=== PATIENT | male | born 1945 | race Caucasian/White ===

== ENCOUNTER 2016-08-03 11:10 | Emergency (ER) | payer MEDICARE, MEDICAID ==
[~2016-08-03] VITALS: Ht 177.8 cm; Wt 88.6 kg
[2016-08-03 11:21] VITALS: BP 123/77; PULSE 93; RESP 16; O2SAT 100
--- NOTE | 2016-08-03 11:42 | ED.REPORT ---
HPI-General Illness Date of Service Aug 03, 2016 ED Provider: Ramon Crowe DO Pt is a 71 y.o. male with a colostomy bag who presents to the ED c/o severe sudden onset abdominal pain near sight of colostomy bag onset last night. Pt states that the pain has since resolved but he now notices swelling surrounding site. He also states that he experienced 2 hours of only clear liquid excreting into the bag, he described it as "weeping tears". Pt denies fever, nausea, and vomiting. He notes that he was able to change his bag himself but tore a hole in it. Pt states that colostomy is 'temporary'. Nursing Notes Stated Complaint: POSS OBSTRUCTION COLOSTOMY BAG Chief Complaint: General Complaint Nursing Notes Reviewed: Yes Allergies: Coded Allergies: codeine (Verified Allergy, Intermediate, Rash,Itching,, 01/17/16) General Time Seen by MD: 11:39 Chief Complaint Abdominal pain Hx Obtained From: Patient Arrived By: Walk-in Sudden in Onset?: Yes Onset Occurred: Yesterday Symptom Duration: 1 - 4 hours Location: : Abdomen Quality: Painful Severity: Current: No pain currently Severity: Maximum: Severe Past Medical History Past Medical History recent weight loss (40 pounds in 6 months) [place] Chronic kidney disease with most recent creatinine of 3.2 on 11/29/2015. Etiology of chronic renal disease is likely secondary to: NSAIDs, postobstructive uropathy, hepatorenal. 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 Physical Exam Vital Signs Initial VS: Reviewed Head / Eyes: Atraumatic, Normocephalic Extremities: Vascular intact, Neuro intact Skin: Warm, Dry, No cyanosis Neurologic: Alert, Oriented, Nonfocal Psychiatric: Mood/affect normal, Behavior normal, Normal thought content General/Constitutional: Awake, Alert, No acute distress, Well appearing, Well developed, Well hydrated, Well nourished, Not toxic appearing Respiratory / Chest: Atraumatic, Breath sounds NL, Breath sounds = bilat, No respiratory distress, No rales, No rhonchi, No wheezing Cardiovascular: Heart rate NL, Regular rhythm, Heart sounds NL, No gallop, No murmurs, No rubs, Peripheral circulation NL Abdomen: Soft, Non-tender Beefy red stoma Ostomy bag full of green loose stool Interpretation & Diagnostics X-Ray Abdominal Interpretation IMPRESSION: No radiographic evidence for bowel obstruction, status post interval left lower quadrant ostomy. Dictated by: Raul Tipton M.D. on 08/03/2016 at 13:31 Approved by: Raul Tipton M.D. on 08/03/2016 at 13:33 Re-Eval/Medical Decision Med Decision/Clinical Course 71-year-old male presenting with an episode of abdominal pain with no ostomy output for 2 hours. It did restart prior to arrival at the ER. He notes a hole in his ostomy bag. X-ray is reassuring that there is no obstruction and he continues to have output here. His ostomy bag was changed. Was given Toradol and oxycodone for gas pain. I offered a CT scan of his abdomen but he stated that his pain is not that serious. He will return if his pain worsens and he plans to follow up with his doctor as scheduled Source of Hx: Old records Time of Eval: 13:48 Re-Evaluation/Progress Note: Pt rechecked. Pt states that he is still experiencing pain. Discussed imaging results and plan for discharge. Pt understands and agrees with plan. Counseled Regarding: Diagnosis, Lab results, Need for follow-up, When/why to return to ED Discharge & Departure Primary Impression: Complication of ostomy Additional Impression: Acute abdominal pain Disposition: Home Discharge Condition All VS Reviewed: Yes Condition: Stable Patient Instructions: Colostomy Care (ED) Additional Instructions: Thank you for entrusting us with your care today. Your examination included a physical exam, interview, and abdominal x-ray. Your imaging was reassuring and it does not appear that you have an obstruction. Your imaging does show gas build up and this may be a cause of your pain. I recommend you follow-up with your primary care physician. Please seek care if you experience worsening pain, fever, redness, swelling, or any new or worsening symptoms. Referrals: OTHER,PHYSICIAN (PCP) [facility] Ziyad Attestation Portions of this note were transcribed by Drew Fernandez. I, Dr. Crowe personally performed the history, physical exam and medical decision-making; I reviewed and confirmed the accuracy of the information in the transcribed note. Signed by: Ziyad Lynch, 08/03/2016 and [id number]. copies to: [facility] Ramon Crowe DO Aug 03, 2016 11:42 DREW FERNANDEZ Aug 03, 2016 12:00 Signed by: Ziyad Lynch, 08/03/2016 and 1356. copies to: [facility] Ramon Crowe DO Aug 03, 2016 11:42 DREW FERNANDEZ Aug 03, 2016 12:00
--- NOTE | 2016-08-03 13:35 | DRSVH ---
PROCEDURE: X-RAY ACUTE ABDOMINAL SERIES ([id number]) INDICATIONS: 71 year-old male with abdominal pain and decreased ostomy output. TECHNIQUE: One view chest and two views of the abdomen were acquired. COMPARISON: [facility], CT, CT ABD PELVIS WO CON, 01/17/2016, 14:34. FINDINGS: Surgical changes and devices: Left chest wall single lead pacemaker is again noted. Right upper quadr ant surgical clips are again noted, as well as right lower quadrant bowel anastomotic yury. Left l ower quadrant ostomy is now present. Presumed Cadena catheter is also present. Chest: Lungs are clear. Heart size is normal. No pleural effusions. No pneumoperitoneum. Abdomen: Bowel gas pattern is normal. No suspicious calcifications. Visualized solid organ contour s appear normal. Bones: No suspicious bony lesions. IMPRESSION: No radiographic evidence for bowel obstruction, status post interval left lower quadrant ostomy. Dictated by: Raul Tipton M.D. on 08/03/2016 at 13:31 Approved by: Raul Tipton M.D. on 08/03/2016 at 13:33
== END 2016-08-03 14:20 | disposition home or self-care (01) ==
LOC: SED 11:10
DX: K94.09 Other complications of colostomy (principal); R10.9 Unspecified abdominal pain; Y83.3 Surgical operation with formation of external stoma as the cause of abnormal reaction of the patient, or of later complication, without mention of misadventure at the time of the procedure; Y93.89 Activity, other specified; Y99.8 Other external cause status; Y92.019 Unspecified place in single-family (private) house as the place of occurrence of the external cause; I12.9 Hypertensive chronic kidney disease with stage 1 through stage 4 chronic kidney disease, or unspecified chronic kidney disease; N18.9 Chronic kidney disease, unspecified; J44.9 Chronic obstructive pulmonary disease, unspecified; I25.2 Old myocardial infarction; Z98.84 Bariatric surgery status; Z88.5 Allergy status to narcotic agent

== ENCOUNTER 2016-09-12 12:38 | Emergency (ER) | payer MEDICARE, MEDICAID ==
[2016-09-12 12:46] VITALS: BP 135/81; PULSE 82; RESP 18; O2SAT 98
--- NOTE | 2016-09-12 13:00 | ED.REPORT ---
HPI-Abd Pain M 40 and Over Date of Service Sep 12, 2016 ED Provider: Robbie Tomlinson MD 71 year old male with history of colostomy due to chronic diarrhea presents to the ER complaining of a herniation at his colostomy site status post lifting a desk out of his truck two days ago. He states that his intestines were expelled from his colostomy site, dislodging his colostomy bag. At the time of the incident he immediately laid on his back and reduced his intestines manually. Patient denies fever, nausea, vomiting, and diarrhea. He is on chronic oxycodone. Nursing Notes Stated Complaint: ABD PAIN Chief Complaint: General Complaint Nursing Notes Reviewed: Yes Allergies: Coded Allergies: codeine (Verified Allergy, Intermediate, Rash,Itching,, 01/17/16) General Time Seen by MD: 12:59 Chief Complaint Abdominal pain, Other (Hernia at Colostomy Site) Hx Obtained From: Patient Arrived By: Walk-in Sudden in Onset?: Yes Onset Occurred: 2 days ago Symptom Duration: Since onset Location: : LLQ Quality: Painful Severity: Current: Mild Severity: Maximum: Moderate Past Medical History Past Medical History recent weight loss (40 pounds in 6 months) [place] Chronic kidney disease with most recent creatinine of 3.2 on 11/29/2015. Etiology of chronic renal disease is likely secondary to: NSAIDs, postobstructive uropathy, hepatorenal. 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 Physical Exam Initial Vital Signs Vital Signs (First) Date Time Temp Pulse Resp B/P Pulse Ox O2 Delivery O2 Flow Rate FiO2 09/12/16 12:46 36.2 82 18 135/81 98 09/12/16 13:19 Room Air Initial VS: Reviewed Head / Eyes: Atraumatic, Normocephalic Neck: Supple, Non-tender, Full range of motion Extremities: Vascular intact, Neuro intact, No swelling, No tenderness Skin: Warm, Dry, No cyanosis Neurologic: Alert, Oriented, Nonfocal General/Constitutional: Awake, Alert, Well developed, Well nourished Respiratory / Chest: Breath sounds NL, Breath sounds = bilat, No respiratory distress, No rales, No rhonchi, No wheezing Cardiovascular: Heart rate NL, Regular rhythm, Heart sounds NL, Peripheral circulation NL Abdomen: Soft, Non-tender, No guarding, No rebound, No distention Colostomy bag in LLQ with small liquid stool present. Colostomy site clean. Back: Inspection NL, Non-tender, No CVA tenderness Re-Eval/Medical Decision Source of Hx: Old records Time of Eval: 13:06 Re-Evaluation/Progress Note: Discussed physical examination findings and plan to discharge. Patient is amenable to the plan. Return precautions given. All other questions addressed. Counseled Regarding: Diagnosis, Need for follow-up, When/why to return to ED Discharge & Departure Primary Impression: Complication of ostomy Disposition: Home Vital Signs - All Vital Signs Date Time Temp Pulse Resp B/P Pulse Ox O2 Delivery O2 Flow Rate FiO2 09/12/16 13:19 36.2 82 18 135/81 98 Room Air 09/12/16 12:46 36.2 82 18 135/81 98 )( All Prior VS Reviewed: Yes Condition: Stable Patient Instructions: Colostomy Care (ED) Additional Instructions: Your colostomy site looks good. Return to the ER if you have any worsening or concerning symptoms. You have an appointment with Dr. Anderson Tuesday 09/19, 945 a.m. Referrals: OTHER,PHYSICIAN (PCP) Darell Anderson MD Attestation Portions of this note were transcribed by Giorgi Mills. I, Dr. Tomlinson, personally performed the history, physical exam and medical decision-making; I reviewed and confirmed the accuracy of the information in the transcribed note. Signed by: Ziyad Lizama, 09/12/2016 and 13:17 copies to: Darell Anderson MD, Kirk H MD Sep 12, 2016 12:59 GIORGI MILLS Sep 12, 2016 13:07
[2016-09-12 13:19] VITALS: BP 135/81; PULSE 82; RESP 18; O2SAT 98
== END 2016-09-12 13:26 | disposition home or self-care (01) ==
LOC: SED 12:38
DX: K94.09 Other complications of colostomy (principal); I13.10 Hypertensive heart and chronic kidney disease without heart failure, with stage 1 through stage 4 chronic kidney disease, or unspecified chronic kidney disease; N18.9 Chronic kidney disease, unspecified; I25.2 Old myocardial infarction; J44.9 Chronic obstructive pulmonary disease, unspecified; Z98.84 Bariatric surgery status; Z88.5 Allergy status to narcotic agent

== ENCOUNTER 2016-09-14 06:39 | Emergency (ER) | payer MEDICARE, MEDICAID ==
[~2016-09-14] VITALS: Ht 177.8 cm; Wt 90.9 kg
[2016-09-14 06:47] VITALS: BP 142/84; RESP 16; O2SAT 96
--- NOTE | 2016-09-14 06:54 | ED.REPORT ---
HPI-General Illness Date of Service Sep 14, 2016 ED Provider: Renato Garcia MD History of Present Illness: There is no sore throat template in this system, so a general illness template was used This is a 71 year old male with a history of CAD, [place], chronic kidney disease, COPD, and HTN presenting to the emergency department due to sore throat that began 10 hours ago. Reports difficulty swallowing due to pain and throat swelling. Pain radiates to the left ear and is associated with mild non- productive cough that has been intermittent in the last two weeks. Reports lack of PO intake due to pain with swallowing and has not taken his prescribed medications. Denies shortness of breath, fever, chills, nausea, vomiting, abdominal pain, diarrhea, or constipation at this time. Nursing Notes Stated Complaint: THROAT SORE AND CLOSING Chief Complaint: ENT & Mouth Nursing Notes Reviewed: Yes (Plex, [employer]Views not reconciled) Allergies: Coded Allergies: codeine (Verified Allergy, Intermediate, Rash,Itching,, 01/17/16) General Time Seen by MD: 06:41 Chief Complaint Other Hx Obtained From: Patient Arrived By: Walk-in Sudden in Onset?: Yes Onset Occurred: Just prior to arrival Symptom Duration: Since onset Severity: Current: Mild Pertinent Negative: Pt denies other symptoms Recent Healthcare: No recent doctor visit, No recent hospitalization Similar Sx Previous: No Past Medical History Past Medical History Notes: Seen in ED 09/12/16 for transient hernia through colostomy Last Admit 01/17/16 - left AMA within 3 hours (sacral wound) Past Medical History ho weight loss (40 pounds in 6 months) CAD w/ho of [place] Chronic kidney disease with most recent creatinine of 3.2 on 11/29/2015. Etiology of chronic renal disease is likely secondary to: NSAIDs, postobstructive uropathy, hepatorenal. 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 Physical Exam Vital Signs Vital Signs Date Time Temp Pulse Resp B/P Pulse Ox O2 Delivery O2 Flow Rate FiO2 09/14/16 06:47 36.1 85 16 142/84 96 Initial VS: Reviewed, Unavailable (none on chart, ordered) Head / Eyes: Atraumatic, Normocephalic, PERRL Neck: Supple, Non-tender, Full range of motion Cardiovascular: Regular rate & rhythm, Heart sounds normal, Intact distal pulses Abdomen / GI: Soft, Non-tender, No guarding, No rebound, No distention Extremities: Vascular intact, Neuro intact, No swelling, No tenderness Skin: Warm, Dry, No cyanosis Neurologic: Alert, Oriented, Nonfocal Psychiatric: Mood/affect normal, Behavior normal, Normal thought content General/Constitutional: Awake, Alert, No acute distress ENT: Airway patent, Mucous membranes moist, Pharynx NL, No pooling of secretions, No trismus, Tympanic membs NL Respiratory / Chest: No respiratory distress Wheezing / Retractions: Positive: Wheeze insp/exp diffuse States breathing is at baseline Interpretation & Diagnostics Lab Results Interpretation Lab Results Interpretation: Rapid strep negative Re-Eval/Medical Decision Med Decision/Clinical Course This is a 71-year-old male presents complaining of a sore throat to the point that he is having difficulty swallowing. The patient ambulate same, he appears in no visible distress and talks without any evidence of airway compromise. His voice is clear without muffling. He is handling his secretions without any visible difficulty. He has no trismus and can open his mouth wide open, and the pharynx appears relatively normal. I do not appreciate any rodney erythema or exudate, bedside strep is negative. There is no cervical or submandibular adenopathy or swelling. There is no clinical signs of blood weeks. He is a faint wheeze on respiratory exam, but states his breathing is at baseline. Overall the patient appears well. However the patient became angry when I offered him a viscous lidocaine for symptomatic relief. He demands a shot of penicillin stating that his work for him years ago in the past when he had similar symptoms. The patient seemed disproportionally upset, so I asked to see if he could swallow the lidocaine because he kept telling me he could not swallow. This is despite the fact that he did not demonstrate any of the typical external findings expected of someone with complete obstruction or inability to swallow. In fact the patient was actually able to swallow the lidocaine in front of me , with down without anything but mild discomfort. The patient became what seems to me is inappropriately upset as I was attempting review options, and demanded a shot I-indicated that if this that is what he really wants, even though it is not clearly indicated I would offer him this but that I wanted to make sure that we were appropriately addressing his condition as it is not clear that he has a simple strep throat and that other conditions (esophagititis, etc...) might be present. But the despite offering him the Pencilling injection he was demaning, the patient became so upset, he simply got up and ran out the door in the middle of our discussion. He would not wait for discharge instructions. Again he appears clinically well. He does not demonstrated clinical signs of airway compromise. he does not appear dehydrated. I could not get him to articulate the reason for his anger outburst (beyond his desire to get a penicillin injection) as it seemed disproportionate to the presentation. He did not appear intoxicated or in withdrawal. He seemed to have adequate decision capacity based on my initial interview, although I could not fully discuss risks/benefits as the patient simply rapidly eloped. Source of Hx: Old records Time of Eval: 08:34 Patient Status: Condition improved Differential Diagnosis: Positive: Pharyngitis, acute, Negative: Abdominal pain, Allergies, Asthma, Malingering, Tonsillitis, acute Counseled Regarding: Diagnosis, Lab results, Need for follow-up, When/why to return to ED Discharge & Departure Primary Impression: Pharyngitis Pharyngitis/tonsillitis etiology: unspecified etiology Qualified Code: J02.9 - Acute pharyngitis, unspecified Disposition: AGAINST MEDICAL ADVICE (eloped) Discharge Condition All VS Reviewed: Yes Condition: Stable Referrals: OTHER,PHYSICIAN (PCP) Scribe Attestation Portions of this note were transcribed by Helene Olmedo. IDr. Garcia personally performed the history, physical exam and medical decision-making; I reviewed and confirmed the accuracy of the information in the transcribed note. Signed by: Helene Olmedo. 09/14/2016, 15:00. Renato Garcia MD Sep 14, 2016 06:54 HELENE OLMEDO Sep 14, 2016 07:01
== END 2016-09-14 08:37 ==
LOC: SED 06:39
DX: J02.9 Acute pharyngitis, unspecified (principal); I25.10 Atherosclerotic heart disease of native coronary artery without angina pectoris; I25.2 Old myocardial infarction; N18.9 Chronic kidney disease, unspecified; J44.9 Chronic obstructive pulmonary disease, unspecified; I12.9 Hypertensive chronic kidney disease with stage 1 through stage 4 chronic kidney disease, or unspecified chronic kidney disease; Z95.0 Presence of cardiac pacemaker; F17.200 Nicotine dependence, unspecified, uncomplicated; Z88.5 Allergy status to narcotic agent

== ENCOUNTER 2016-09-15 15:45 | Emergency (ER) | payer MEDICARE, MEDICAID ==
[~2016-09-15] VITALS: Ht 177.8 cm; Wt 90.9 kg
[2016-09-15 15:48] VITALS: BP 149/91; PULSE 89; RESP 16; O2SAT 98
--- NOTE | 2016-09-15 18:28 | ED.REPORT ---
HPI-General Illness Date of Service Sep 15, 2016 ED Provider: Vikas Ortiz MD The patient is a 71 year old male with history of coronary artery disease, COPD , hypertension, chronic kidney disease, gastric bypass, and previous colostomy placement, who presents to the emergency department complaining of a prolapsed colostomy that he noticed this morning. He has tried to push it back in but it continues to come out. The colostomy is still functioning and draining stool. He denies any pain, fever, chills or vomiting. He has an appointment with his surgeon on Thursday. Nursing Notes Stated Complaint: COLOSTOMY ISSUE Chief Complaint: Male Abdominal Pain Nursing Notes Reviewed: Yes Allergies: Coded Allergies: codeine (Verified Allergy, Intermediate, Rash,Itching,, 09/15/16) General Time Seen by MD: 18:12 Chief Complaint Other (colostomy issue) Hx Obtained From: Patient Arrived By: Walk-in Sudden in Onset?: Yes Onset Occurred: 5 - 8 hours ago Symptom Duration: Since onset Severity: Current: No pain currently Severity: Maximum: No pain Recent Healthcare: No recent hospitalization, Recent doctor visit Similar Sx Previous: Yes Past Medical History Past Medical History Notes: 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 [address] [place] [phone], Phone / Fax Past Medical History CAD w/ho of [place] Chronic kidney disease with most recent creatinine of 3.2 on 11/29/2015. Etiology of chronic renal disease is likely secondary to: NSAIDs, postobstructive uropathy, hepatorenal. 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 Physical Exam Vital Signs Vital Signs Date Time Temp Pulse Resp B/P Pulse Ox O2 Delivery O2 Flow Rate FiO2 09/15/16 15:48 36.2 89 16 149/91 98 Room Air Initial VS: Reviewed Head / Eyes: Atraumatic, Normocephalic, PERRL ENT: Mucous membranes moist, Conjunctiva normal, No scleral icterus Neck: Supple, Non-tender, Full range of motion Lymphatic: No lymphadenopathy Extremities: Vascular intact, Neuro intact, No swelling, No tenderness Skin: Warm, Dry, No cyanosis Neurologic: Alert, Oriented, Nonfocal Psychiatric: Mood/affect normal, Behavior normal, Normal thought content General/Constitutional: Awake, Alert, Cooperative Respiratory / Chest: Atraumatic, Breath sounds NL, Breath sounds = bilat, No respiratory distress, No rales, No rhonchi, No wheezing, No retractions Cardiovascular: Heart rate NL, Regular rhythm, Heart sounds NL, No gallop, No murmurs, No rubs, Cap refill not delayed, Peripheral circulation NL Abdomen: Soft, Non-tender, No distention Colostomy bag in LLQ there is liquid brown stool present. His colostomy is prolapsed. When I reduce it, it just pops back out again. There is also a suprapubic catheter in place with some mild surrounding skin irritation but there is no induration or warmth. Lower Extremity / Pelvis / MS: Neurologic intact, Vascular intact No unilateral calf swelling or tenderness. Re-Eval/Medical Decision Med Decision/Clinical Course The patient is a 71 year old male with history of coronary artery disease, COPD , hypertension, chronic kidney disease, gastric bypass, and previous colostomy placement, who presents to the emergency department complaining of a prolapsed colostomy that he noticed this morning. He has tried to push it back in but it continues to come out. The colostomy is still functioning and draining stool. He denies any pain, fever, chills or vomiting. He has an appointment with his surgeon on Thursday. Here in the emergency department the patient is completely benign abdominal examination. Prolapsed colostomy is easily reducible though spontaneously prolapses again. There is no evidence of strangulation or incarceration. Ostomy continues to function normally with liquid brown stool in ostomy bag. Patient afebrile and nontoxic in appearance. Spoke with Dr. Castro Briceño who believes there is no need to admit the patient or do any further workup. He should see his surgeon as scheduled on Thursday. Reviewed plan as above the patient and he is comfortable with this plan. Follow-up and return precautions were reviewed in detail and he was discharged in good condition to follow up with a surgeon on an outpatient basis. Source of Hx: Old records Time of Eval: 19:57 Re-Evaluation/Progress Note: Rechecked the patient. Discussed plan for discharge with outpatient followup. All questions were addressed. Consultation : Referral / Consult Name: Castro Briceño MD Consulted With: Surgeon Call Returned at: 19:50 Cask Maker: Agrees with eval, Agrees with plan Counseled Regarding: Diagnosis, Lab results, Need for follow-up, When/why to return to ED Discharge & Departure Primary Impression: Colostomy prolapse Disposition: Home Discharge Condition All VS Reviewed: Yes Condition: Stable Additional Instructions: Thank you for seeking care at the emergency room. Our primary goal today in the ED was to evaluate you for any life-threatening conditions. Your evaluation was reassuring. You should follow-up with your surgeon as scheduled on Thursday. You should return to the ED immediately if you develop abdominal pain, decreased colostomy output, signs of infection around the colostomy site, fevers , vomiting, or any other concerning signs or symptoms. Thank you for letting us partake in your care today. Referrals: NOPCP (PCP) Scribe Attestation Portions of this note were transcribed by Kristina Koch. I, Dr. Ortiz personally performed the history, physical exam and medical decision-making; I reviewed and confirmed the accuracy of the information in the transcribed note. Signed by: Ziyad Neri, 09/15/2016 at 2009. Vikas Ortiz MD Sep 15, 2016 18:28 Kristina Koch Sep 15, 2016 18:38
== END 2016-09-15 20:31 | disposition home or self-care (01) ==
LOC: SED 15:45
DX: K94.09 Other complications of colostomy (principal); I13.10 Hypertensive heart and chronic kidney disease without heart failure, with stage 1 through stage 4 chronic kidney disease, or unspecified chronic kidney disease; N18.9 Chronic kidney disease, unspecified; I25.10 Atherosclerotic heart disease of native coronary artery without angina pectoris; I25.2 Old myocardial infarction; J44.9 Chronic obstructive pulmonary disease, unspecified; F17.200 Nicotine dependence, unspecified, uncomplicated; Z95.0 Presence of cardiac pacemaker; Z98.84 Bariatric surgery status; Z88.5 Allergy status to narcotic agent

== ENCOUNTER 2016-09-26 16:16 | Emergency (ER) | payer MEDICARE, MEDICAID ==
[~2016-09-26] VITALS: Ht 177.8 cm; Wt 90.1 kg
[2016-09-26 16:18] VITALS: BP 134/80; PULSE 91; RESP 20; O2SAT 100
--- NOTE | 2016-09-26 18:08 | ED.REPORT ---
HPI-Abd Pain M 40 and Over Date of Service Sep 26, 2016 ED Provider: Dr. Levy Pt is a 71 y/o male w/ a hx of CAD, COPD, hypertension, chronic kidney disease, gastric bypass, and previous colostomy placement in March 2016, presenting to the ED c/o a prolapsed colostomy that he noticed 2 hours ago. The colostomy is not reducible at this point. He c/o associated pain over the site and darker reddening of the tissue. This has happened a few times previously. Pt denies fever, chills, nausea, vomiting. Nursing Notes Stated Complaint: ABDOMINAL ISSUES Chief Complaint: Male Abdominal Pain Nursing Notes Reviewed: Yes Allergies: Coded Allergies: codeine (Verified Allergy, Intermediate, Rash,Itching,, 09/26/16) General Time Seen by MD: 18:07 Chief Complaint Abdominal pain Hx Obtained From: Patient Arrived By: Walk-in Sudden in Onset?: Yes Onset Occurred: 1 - 4 hours ago Symptom Duration: Since onset Progression since Onset: Unchanged Quality: Painful Radiation: : Does not radiate Severity: Current: Moderate Severity: Maximum: Moderate Recent Healthcare: Previous diagnosis Similar Sx Previous: Yes Past Medical History Past Medical History Notes: 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 [address] [place] [address], Phone / Fax Past Medical History CAD w/ho of [place] Chronic kidney disease with most recent creatinine of 3.2 on 11/29/2015. Etiology of chronic renal disease is likely secondary to: NSAIDs, postobstructive uropathy, hepatorenal. Reports: COPD, Hypertension Past Surgical History Gastric bypass Lumbar surgery resulting in parasacral numbness -> chronic sacral ulcer -> colostomy Reports: Pacemaker insertion Family History Noncontributory Smoking History Current Every Day Smoker Social History Alcohol Use: "Social" Other Social History: Local resident Ambulatory Status Independent Review of Systems Constitutional: Denies: Chills, Fever Respiratory: Denies: Non-productive cough, Shortness of breath GI: Reports: Abdominal pain, Denies: Nausea, Vomiting Complete sys rev & neg: except as marked. Physical Exam Initial Vital Signs Vital Signs (First) Date Time Temp Pulse Resp B/P Pulse Ox O2 Delivery O2 Flow Rate FiO2 09/26/16 16:18 36.0 91 20 134/80 100 Room Air Initial VS: Reviewed, Vital signs normal Head / Eyes: Atraumatic, Normocephalic, PERRL ENT: Mucous membranes moist, Conjunctiva normal, No scleral icterus Neck: Supple, Full range of motion Extremities: Vascular intact, Neuro intact, No swelling, No tenderness Skin: Warm, Dry, No cyanosis Neurologic: Alert, Oriented, Nonfocal Psychiatric: Mood/affect normal, Behavior normal, Normal thought content General/Constitutional: Awake, Alert, Cooperative, Not toxic appearing Distress / Hydration: Positive: Distress moderate Respiratory / Chest: Atraumatic, Breath sounds NL, Breath sounds = bilat, No respiratory distress, No rales, No rhonchi, No wheezing, No retractions, No stridor, No chest tenderness, No chest wall deformity, No crepitus Cardiovascular: Heart rate NL, Regular rhythm, Heart sounds NL, No gallop, No murmurs, No rubs, Cap refill not delayed, Peripheral circulation NL Abdomen: Atraumatic, Soft, No guarding, No rebound, No distention Prolapsed incarcerated colostomy. Not reducible by me or the patient Patient states some of the tissue is darker red than normal Tender to touch Bunch viable tissue Does not appear engorged No foul smell Does not yet appear strangulated Back: Full range of motion, Painless range of motion Interpretation & Diagnostics Lab Results Interpretation Result Diagram: 09/26/16182409/26/161824 Test 09/26/16 18:25 White Blood Count 7.9th/mm3 (3.8-10.1) Red Blood Count 3.32mil/mm3 (4.40-5.80) Hemoglobin 10.4g/dL (13.8-17.2) Hematocrit 33.0% (41.0-50.0) Mean Corpuscular Volume 99.4fL (81-100) Mean Corpuscular Hemoglobin 31.3pg (27.0-35.0) Mean Corpuscular Hemoglobin Concent 31.5% (32.0-37.0) Red Cell Distribution Width 14.2% (12.3-15.4) Platelet Count 246bil/L (150-400) Neutrophils (%) (Auto) 68.8% (40-74) Lymphocytes (%) (Auto) 15.9% (14-46) Monocytes (%) (Auto) 10.7% (4-12) Eosinophils (%) (Auto) 4.1% (0-5) Basophils (%) (Auto) 0.1% (0-3) Sodium Level 136mEq/L (134-144) Potassium Level 5.2mEq/L (3.5-5.2) Chloride Level 107mEq/L (97-108) Carbon Dioxide Level 17mmol/L (18-29) Blood Urea Nitrogen 24mg/dL (8-27) Creatinine 3.57mg/dL (0.76-1.27) Estimat Glomerular Filtration Rate 18mL/min (>59) Glucose Level 96mg/dL (60-99) Lactic Acid Level 0.9mmol/L (0.4-2.0) Calcium Level 8.1mg/dL (8.5-10.1) Total Bilirubin 0.3mg/dL (0.0-1.2) Aspartate Amino Transf (AST/SGOT) 16U/L (0-50) Alanine Aminotransferase (ALT/SGPT) 11U/L (0-44) Alkaline Phosphatase 107U/L (25-160) Total Protein 6.5g/dL (6.4-8.4) Albumin 3.2g/dL (3.4-5.0) Re-Eval/Medical Decision Med Decision/Clinical Course I sent pitchers of this to Dr. Shore. He feels that this can be followed up within the outpatient. The os is widely patent and he is passing gas. No signs of bowel obstruction strangulate her incarceration. Pain medication was given and he felt great. We put colostomy bag over it and he thinks he is going to do well. He will return for any problems. Appointments and Dr. Anderson on Thursday. Consultation : Referral / Consult Name: Seth Bolton MD Consulted With: Surgeon Call Returned at: 18:45 Teacher Lip Reading: Agrees with eval, Agrees with plan Counseled Regarding: Diagnosis, Lab results, Need for follow-up, When/why to return to ED Discharge & Departure Primary Impression: Colostomy prolapse Additional Impression: Complication of ostomy Disposition: Home Vital Signs - All Vital Signs Date Time Temp Pulse Resp B/P Pulse Ox O2 Delivery O2 Flow Rate FiO2 09/26/16 16:18 36.0 91 20 134/80 100 Room Air )( All Prior VS Reviewed: Yes Condition: Stable Patient Instructions: Colostomy Care (ED), Open Colostomy Reversal (ED) Additional Instructions: I consulted with general surgery today, Dr. Bolton. He requests that you see your surgeon next week. If it is draining stool normally and you are not vomiting you can be discharged. Take 1 oxycodone every 6 hours as needed for pain. Do not drive, drink alcohol, or consume other opiates while taking Oxycodone. See Dr. Anderson on Thursday. Call his office and tell them I requested you be seen on Thursday for a prolapsed colostomy. Return to the emergency department for fever, vomiting, increasing pain, foul odor from the ostomy, profound weakness, or for other concerning symptoms. Referrals: Liliya Carson PA-C (PCP) Darell Anderson MD Attestation Portions of this note were transcribed by Leo Olivas. I, Dr. Levy personally performed the history, physical exam and medical decision-making; I reviewed and confirmed the accuracy of the information in the transcribed note. Signed by Ziyad Mejía, 09/26/16 - 1820 copies to: Liliya Carson PA-C; Darell Anderson MD, Todd P DO Sep 26, 2016 18:08 LEO OLIVAS Sep 26, 2016 18:19
[2016-09-26] MEDS ORDERED: HYDROmorphone 0.5 mg/0.5 mL iSecure Syringe IVPUSH PRN (18:35)
[2016-09-26 18:36] LABS: BASOPHILS % (AUTO) 0.1 % (0-3); EOSINOPHILS % (AUTO) 4.1 % (0-5); MONOCYTES % (AUTO) 10.7 % (4-12); Mean Corpuscular Hemoglobin 31.3 pg (27.0-35.0); Mean Corpuscular Volume 99.4 fL (81-100); NEUTROPHILS % (AUTO) 68.8 % (40-74); Platelet Count 246 bil/L (150-400)
[2016-09-26] MEDS ORDERED: HYDROmorphone 1 mg/mL Inj IM ONE (18:45)
== END 2016-09-26 19:20 | disposition home or self-care (01) ==
LOC: SED 16:16
DX: K94.09 Other complications of colostomy (principal); I25.10 Atherosclerotic heart disease of native coronary artery without angina pectoris; I12.9 Hypertensive chronic kidney disease with stage 1 through stage 4 chronic kidney disease, or unspecified chronic kidney disease; N18.9 Chronic kidney disease, unspecified; J44.9 Chronic obstructive pulmonary disease, unspecified; F17.200 Nicotine dependence, unspecified, uncomplicated; I25.2 Old myocardial infarction; Z95.0 Presence of cardiac pacemaker; Z98.84 Bariatric surgery status; Z88.5 Allergy status to narcotic agent
CPT/HCPCS: 36415; 80053; 83605; 85025; 96372; 96374; 99284; J1170

== ENCOUNTER 2016-11-17 10:02 | Emergency (ER) | payer MEDICARE, MEDICAID ==
[~2016-11-17] VITALS: Ht 180.3 cm; Wt 88.6 kg
[2016-11-17 10:04] VITALS: BP 139/79; PULSE 73; RESP 22; O2SAT 94
--- NOTE | 2016-11-17 10:18 | ED.REPORT ---
HPI-Dyspnea / Wheezing Date of Service November 17, 2016 ED Provider: Jonah Thomas MD The patient is a 71 year old male w/ hx of CAD, COPD, hypertension, chronic kidney disease, gastric bypass, and previous colostomy placement in March 2016 , who presents to the ED due to SOB for the past 5 days. C/o associated wheezing , insomnia and a yellow, productive cough. Pt states that he is struggling for breath and is, "right on the edge of passing out." He uses nebulizers but they have not been effective at abating symptoms. He was given a Z-romeo by his PCP last week. Pt is a smoker and has had 5/10 chest pain for the last 5 years. Pt has a pacemaker, mostly recently looked at 2 years ago. He denies new chest pain , fever, nausea, and vomiting. Nursing Notes Stated Complaint: PACE MAKER ISSUE Chief Complaint: Respiratory Distress Nursing Notes Reviewed: Yes Allergies: Coded Allergies: codeine (Verified Allergy, Intermediate, Rash,Itching,, 09/26/16) Scheduled Azithromycin (Zithromax (Z-Romeo)) 250 Mg Tablet 250 MG PO DIRECTED Take two tablets by mouth on day 1, then take one tablet daily on days 2 through 5. 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 [address] [place] [id number], Phone / Fax Past Medical History CAD w/ho of [place] Chronic kidney disease with most recent creatinine of 3.2 on 11/29/2015. Etiology of chronic renal disease is likely secondary to: NSAIDs, postobstructive uropathy, hepatorenal. Reports: COPD, Hypertension Past Surgical History Gastric bypass Lumbar surgery resulting in parasacral numbness -> chronic sacral ulcer -> colostomy Reports: Appendectomy, Cholecystectomy Reports: Pacemaker insertion Family History Noncontributory Smoking History Current Every Day Smoker Social History Alcohol Use: "Social" Other Social History: Local resident Ambulatory Status Independent Review of Systems Constitutional: Denies: Fever Respiratory: Reports: Prod cough, yellow, Shortness of breath, Wheezing Cardiovascular: Denies: Chest pain Complete sys rev & neg: except as marked. GI: Denies: Nausea, Vomiting Physical Exam Initial Vital Signs Vital Signs (First) Date Time Temp Pulse Resp B/P Pulse Ox O2 Delivery O2 Flow Rate FiO2 11/17/16 10:04 36.4 73 22 139/79 94 Room Air Initial VS: Reviewed Head / Eyes: Atraumatic, Normocephalic, PERRL ENT: Mucous membranes moist, Conjunctiva normal Abdomen / GI: Soft, Non-tender, No guarding, No rebound, No distention Back: No CVA tenderness Extremities: Vascular intact, Neuro intact, No swelling, No tenderness Skin: Warm, Dry General/Constitutional: Awake, Alert, Cooperative Neck: Atraumatic, Supple Wheezing / Retractions: Positive: Wheeze insp/exp diffuse (bilateral) course breath sounds Cardiovascular: Heart rate NL, Regular rhythm, No murmurs Interpretation & Diagnostics ECG Interpretation ECG Interpretation: A-fib/flut Time: 10:56 Interpreted by: ED physician Normal ECG Interpretation: Normal sinus rhythm (rate 60) X-Ray Chest Interpretation Chest Xray Interpretation: IMPRESSION: 1. Chronic opacity in the right lung base and cardiophrenic angle, compatible with scars and/or atelectasis. 2. Mild cardiomegaly. Dictated by: Jacki Parmar M.D. on 11/17/2016 at 11:34 Approved by: Jacki Parmar M.D. on 11/17/2016 at 11:37 View: Portable Interpretation / Wet Read by: Interpret - Radiologist Re-Eval/Medical Decision Med Decision/Clinical Course 71-year-old male history of COPD, smoker presenting with cough productive of green sputum 1 week. X-ray no evidence of pneumonia. Patient was wheezing on exam with no respiratory distress. Improved with nebulizer. Patient declines labs and further workup. He requested to go home without any further workup. He refused labs. We treated for COPD exacerbation with steroids and Z-Romeo. Return precautions given. Re-Evaluation/Progress : Time of Eval: 11:50 Re-Evaluation/Progress Note: Pt rechecked. Informed pt of diagnosis and plan for treatment. Pt understands and agrees with plan. F/U and RTER warnings given. All questions addressed. Counseled Regarding: Diagnosis, Lab results, Need for follow-up, When/why to return to ED Discharge & Departure Impression: Primary Impression: COPD exacerbation Disposition: Home Discharge Condition All VS Reviewed: Yes Condition: Stable Additional Instructions: Thank you for entrusting us with your care today. I am sending you home with steroids and antibiotics. Follow up with your primary care physician in the next few days. Do not hesitate to return to the Emergency Department for any new or worsening symptoms including difficulty breathing, lightheadedness, dizziness, weakness, nausea, vomiting, and diarrhea. I hope you feel better soon , enjoy the sunshine! Referrals: Liliya Carson PA-C (PCP) Scribe Attestation Portion of this note were transcribed by Veronica Giles. I, Dr. Thomas, personally performed the history, physical exam, and medical decision-making: I reviewed and confirmed the accuracy for the information in the transcribed note. Signed by: thelma Bradford, 11/17/16 1200 copies to: Liliya Carson PA-C, Ben M MD November 17, 2016 10:18 Veronica Giles November 17, 2016 10:35
[2016-11-17] MEDS ORDERED: MethylprednisoLONE Sodium Succinate 62.5 mg/mL 2 mL Inj IVPUSH ONE (10:35)
[2016-11-17] MEDS ORDERED: Albuterol-Ipratropium 3 mL Inhalation Solution NEB ONE (10:35)
[2016-11-17 10:42] VITALS: PULSE 64; RESP 24; O2SAT 96
--- NOTE | 2016-11-17 11:38 | DRSVH ---
PROCEDURE: X-RAY CHEST ONE VIEW, PORTABLE ([id number]) INDICATIONS: dyspnea TECHNIQUE: One view of the chest was acquired. COMPARISON: [facility], CT, CT ABD PELVIS WO CON, 01/17/2016, 14:34. [facility], [facility], XR ABD ACUTE SERIES 3VW, 08/03/2016, 12:48. FINDINGS: Surgical changes and devices: There is a cardiac pacemaker with the project into the cardiac apex. Lungs and pleura: There is chronic opacity in the right lung base and cardiophrenic angle. No pleura l effusions or pneumothorax. Mediastinum: Mediastinal contours appear normal. Heart size is mildly increased. Bones and chest wall: No suspicious bony lesions. Overlying soft tissues appear unremarkable. IMPRESSION: 1. Chronic opacity in the right lung base and cardiophrenic angle, compatible with scars and/or atele ctasis. 2. Mild cardiomegaly. Dictated by: Jacki Parmar M.D. on 11/17/2016 at 11:34 Approved by: Jacki Parmar M.D. on 11/17/2016 at 11:37
[2016-11-17] MEDS ORDERED: AZIT250T4 PO (11:56)
[2016-11-17] MEDS ORDERED: PRE20 PO (11:56)
[2016-11-17] MEDS ORDERED: predniSONE 20 mg Tablet PO ONE (12:00)
[2016-11-17 12:01] VITALS: BP 140/67; PULSE 66; RESP 17; O2SAT 99
[2016-11-17 12:07] VITALS: BP 140/67; PULSE 66; RESP 17; O2SAT 99
== END 2016-11-17 12:08 | disposition home or self-care (01) ==
LOC: SED 10:02
DX: J44.1 Chronic obstructive pulmonary disease with (acute) exacerbation (principal); I25.2 Old myocardial infarction; I25.10 Atherosclerotic heart disease of native coronary artery without angina pectoris; I12.9 Hypertensive chronic kidney disease with stage 1 through stage 4 chronic kidney disease, or unspecified chronic kidney disease; N18.9 Chronic kidney disease, unspecified; F17.200 Nicotine dependence, unspecified, uncomplicated; Z93.3 Colostomy status; Z95.0 Presence of cardiac pacemaker; Z98.84 Bariatric surgery status; Z88.5 Allergy status to narcotic agent
CPT/HCPCS: 71010; 93005; 99285; J7620